=== PATIENT | female | born 1995 | race Caucasian/White ===

== ENCOUNTER 2017-04-01 20:49 | Observation (INO) ==
--- NOTE | 2017-04-01 21:16 | Emergency Department Note ---
Disposition Clinical Impression: Appendicitis Qualifiers: Appendicitis type: acute appendicitis Acute appendicitis type: unspecified acute appendicitis type Qualified Code(s): K35.80 - Unspecified acute appendicitis Disposition: Admitted As Inpatient Condition: Fair Time of Disposition: 21:18 Abdominal Pain HPI - General Chief Complaint: ED Abdominal Pain Stated Complaint: abdominal pain Time Seen by Provider: 04/01/17 21:08 Source: patient, family Mode of arrival: ambulatory Limitations: no limitations Nursing Notes Reviewed: Yes Vital Signs Reviewed: Yes - History of Present Illness HPI Narrative: Patient had outpatient test today including a CT scan of her abdomen and pelvis as well as labs and urinalysis. CT was positive for appendicitis. Patient referred to the emergency department Pt Subjective Complaint: abdominal pain Onset (ago): hour(s) Consistency: constant Location: RLQ Pain Severity: moderate Pain Scale: 4 Quality: aching Radiation: none Migration to: no migration Improves with: other (Position) Worsens with: movement Associated symptoms: Reports: denies other symptoms Treatments prior to arrival: none - Related Data Allergies Allergy/AdvReac Type Severity Reaction Status Date / Time No Known Allergies Allergy Verified 04/01/17 20:59 All systems ED: reviewed and negative except as stated. Constitutional: Reports: as per HPI Eyes: Reports: as per HPI ENT ED: Reports: as per HPI Cardiovascular: Reports: as per HPI Respiratory: Reports: as per HPI Gastrointestinal: Reports: abdominal pain Genitourinary: Reports: as per HPI Musculoskeletal: Reports: as per HPI Integumentary: Reports: as per HPI Neurological: Reports: as per HPI Psychiatric: Reports: as per HPI Endocrine: Reports: as per HPI Hematological/Lymphatic: Reports: as per HPI Allergic/Immunologic: Reports: as per HPI Abdominal Pain PMH - Past Medical History Medical history: Reports: no medical history Female Surgical History: Reports: breast surgery Psychiatric history: Reports: no psych history - Social History Smoking status: Never smoker Alcohol use: Reports: rarely Drug use: Reports: none Physical Exam - General Limitations: no limitations General appearance: alert, in no apparent distress - Head Head exam: atraumatic - Eye Eye exam: Present: normal appearance - ENT ENT exam: normal exam - Neck Neck exam: Present: normal inspection, full ROM - Chest Chest inspection: Present: normal inspection, symmetric chest wall rise - Respiratory Respiratory exam: Present: normal lung sounds bilaterally - Cardiovascular Cardiovascular exam: Present: regular rate, normal rhythm, normal heart sounds - Abdominal Exam Abdominal exam: Present: soft, tenderness (RLQ tenderness), normal bowel sounds - Rectal Exam Rectal exam: Present: deferred - Extremities Exam Extremities exam: Present: normal inspection - Neurological Exam Neurological exam: Present: alert, oriented X3, CN II-XII intact - Psychiatric Psychiatric exam: Present: normal affect, normal mood - Skin Skin exam: Present: warm, dry, intact Course Course Narrative: Patient presents with right lower quadrant abdominal pain. I did review the transcribed report of her CT abdomen and pelvis dated earlier today. I also reviewed her labs including CBC, chemistry profile, urinalysis, test. I spoke with Dr. Reza at 21:15 who recommends admission to his service and 2 g of IV cefoxitin. Vital Signs Temperature 98.5 F 04/01/17 20:59 Pulse Rate 66 04/01/17 20:59 Respiratory Rate 20 04/01/17 20:59 Blood Pressure 145/83 04/01/17 20:59 O2 Sat by Pulse Oximetry 97 04/01/17 20:59 Temperature 98.5 F 04/01/17 20:59 Pulse Rate 66 04/01/17 20:59 Respiratory Rate 20 04/01/17 20:59 Blood Pressure 145/83 04/01/17 20:59 O2 Sat by Pulse Oximetry 97 04/01/17 20:59 Oxygen Delivery Oxygen Delivery Room Air Abdominal Pain - Medical Records Medical records reviewed: Yes I reviewed the patient's medical records.
[2017-04-01] MEDS ORDERED: cefOXitin 2,000 MG in D5% in Water (Mini-Bag+) 100 ML IVPB ONE (21:18)
[2017-04-01] MEDS ORDERED: cefOXitin 2,000 MG in Water for inj. (sterile) 20 ML IVP ONE (21:36)
--- NOTE | 2017-04-01 22:25 | General Surg History&Physical ---
Date of Encounter: 04/01/17 Time of Encounter: 22:23 Assessment and Plan (1) Appendicitis Current Visit: Yes Status: Acute Plan for laparoscopic appendectomy. Risks, benefits, and expected outcomes explained the patient and she agrees to proceed. The assessment and plan as outlined above was discussed with the patient and/or family members who expressed understanding and agreement. All questions were answered. Qualifiers: Appendicitis type: acute appendicitis Acute appendicitis type: with localized peritonitis Qualified Code(s): K35.3 - Acute appendicitis with localized peritonitis History of Present Illness HPI: Ms. Longoria is a 21 year old female with 12 hours of abdominal pain. Patient woke up with it this morning. She denies any emesis however she does admit to nausea. She currently denies any appetite. She states she has never had anything like this in the past. Past Med Surg Social Fam HX - Past Medical History Medical history: no medical history Psychiatric history: no psych history - Past Surgical History Surgical History: other (Breast augmentation) - Social History Smoking Status: Never smoker Alcohol use: rarely Drug use: none Medications and Allergies Naproxen [Naprosyn] 500 mg PO BID 04/01/17 [History] Norgestimate-Ethinyl Estradiol [Sprintec 28 Day Tablet] 1 tab PO DAILY 04/01/17 [History] 3 Allergy/AdvReac Type Severity Reaction Status Date / Time No Known Allergies Allergy Verified 04/01/17 22:06 Review of Systems All systems PM: reviewed and no additional remarkable complaints except as stated All systems PM: A 10-system review of systems was performed and is negative for pertinent findings except as documented above in the HPI. General Surgery Exam Initial Vital Signs Temp Pulse Resp BP Pulse Ox 98.5 F 66 20 145/83 97 04/01/17 20:59 04/01/17 20:59 04/01/17 20:59 04/01/17 20:59 04/01/17 20:59 - General physical appearance well nourished, no distress - Eyes PERRL, normal ocular movement - ENT normal nares, normal mucosa - Respiratory normal respiratory effort, clear to percussion - Cardiovascular Cardiovascular exam: Present: RRR - Abdomen Abdomen general surgery: Present: soft, tender Abdominal Tenderness: Present: RLQ - Integumentary Integumentary general surgery: Present: warm and dry, no abnormal pigmentation - Neurologic Present: normal coordination, normal sensation - Musculoskeletal Present: normal gait, normal posture - Psychiatric Psychiatric general surgery: Present: A&Ox3, speech is normal Results - Labs All other labs normal. - Imaging CT scan - abdomen: image reviewed CT scan - pelvis: image reviewed
--- NOTE | 2017-04-01 22:48 | Anesthesia Evaluation PreOp ---
Date of Encounter: 04/01/17 Time of Encounter: 22:43 - Past History Planned Operation: Lap. Appy Cardiac History: Denies any Significant Hx Pulmonary History: Denies Any Significant HX [employer] MANAGER History: Denies Any Significant HX Other Medical History: Denies Any Significant HX Anesthesia History: Past Anesthesia (Breast Augmentation) : No Test: Negative (04/01/2017) Alcohol Use: rarely Drug use: none Medications and Allergies Naproxen [Naprosyn] 500 mg PO BID 04/01/17 [History] Norgestimate-Ethinyl Estradiol [Sprintec 28 Day Tablet] 1 tab PO DAILY 04/01/17 [History] 3 Allergy/AdvReac Type Severity Reaction Status Date / Time No Known Allergies Allergy Verified 04/01/17 22:06 - Meds/Allergy Pre-op Review Medications Reviewed: Yes Allergies Reviewed: Yes Beta Blockers on Current Med List: No Anesthesia Results - Labs Laboratory Tests 04/01/17 04/01/17 04/01/17 18:06 18:06 18:06 WBC Hgb Hct INR 1.0 BUN 11 Creatinine 0.77 Urine Test Negative 04/01/17 18:06 WBC 10.7 Hgb 12.7 Hct 38.9 INR BUN Creatinine Urine Test Anesthesia Exam O2 Sat Height 1.6 m Weight 72.575 kg O2 Sat by Pulse Oximetry 97 O2 Sat by Pulse Oximetry 97 Vital Signs Temp Pulse Resp BP Pulse Ox 98.5 F 66 20 145/83 97 04/01/17 20:59 04/01/17 20:59 04/01/17 20:59 04/01/17 20:59 04/01/17 20:59 Height: 5'3'' Weight: 160# NPO (# of Hours): > 8 hrs Pain Scale: 0 Pain Scale Used: Numeric (1 - 10) - HEENT Pupil (Motor): Pupils equal, EOMI Mallampati: I Teeth: Normal Oral Opening: Greater than 3 - CON[employer] MANAGER LOC: Oriented [employer] MA[employer]GER Motor: Normal RUE, Normal LUE, Normal RLE, Normal LLE, Normal Face [employer]GER Sensory: Normal: RUE, LUE, RLE, LLE, Face - Cardiac Rhythm: Regular Murmur: None JVD: No Carotid Bruit: No - Pulmonary Breath Sounds: bilateral Clear Respiratory Effort: Symmetrical Anesthesia Assess/Plan ASA Score: 1 Modified [place] Scale for Level of Consciousness: Cooperative, oriented, and tranquil Anesthetic Plan: General Autologous Blood: Yes Monitoring Plan: Standard Monitors Recovery Plan: PACU
[2017-04-01] MEDS ORDERED: *HR* HYDROmorphone (PF) 1 MG/ML SYRINGE IVP PRN (22:49)
[2017-04-01] MEDS ORDERED: *HR* Promethazine 25 MG/ML VIAL IVP PRN (22:50)
[2017-04-01] MEDS ORDERED: Albuterol 2.5 MG/3 ML NEBULIZER IH ONE (22:50)
[2017-04-01] MEDS ORDERED: Ondansetron 4 MG/2 ML VIAL IVP ONE (22:50)
[2017-04-01] MEDS ORDERED: *HR* Labetalol 20 MG/4 ML SYRINGE IVP PRN (22:50)
[2017-04-01] MEDS ORDERED: *HR* Midazolam HCl 2 MG/2 ML VIAL ONE (22:56)
[2017-04-01] MEDS ORDERED: *HR* FentaNYL (PF) 100 MCG/2 ML VIAL ONE ×2 (22:56→23:19)
[2017-04-01] MEDS ORDERED: *HR* Propofol 200 MG/20 ML VIAL IVP ONE (22:56)
[2017-04-01] MEDS ORDERED: *HR* Rocuronium Bromide 50 MG/5 ML VIAL ONE (22:58)
[2017-04-01] MEDS ORDERED: Lidocaine -MPF 2% 2 ML VIAL ONE (22:58)
[2017-04-01] MEDS ORDERED: *HR* Succinylcholine 200 MG/10 ML VIAL IVP ONE (22:58)
[2017-04-01] MEDS ORDERED: Dexamethasone 4 MG/ML VIAL ONE (22:58)
[2017-04-01] MEDS ORDERED: Neostigmine Methylsulfate 3 MG/3 ML SYRINGE ONE ×2 (23:30→23:45)
--- NOTE | 2017-04-02 00:25 | Anesthesia Evaluation Post Op ---
Date of Encounter: 04/02/17 Time of Encounter: 00:24 - Vital Signs Vital Signs: Vital Signs/O2 Sat, Most Current Temp Pulse Resp BP Pulse Ox 97.1 F L 50 12 116/55 95 04/02/17 00:17 04/02/17 00:17 04/02/17 00:17 04/02/17 00:17 04/02/17 00:17 - Lungs Lungs: Clear Ascult./Percussion - Airway Airway: Non-obstructed - Cardiovascular Regular Rate - Mental Status Mental Status: Alert & Oriented, Answers Appropriately - Pain Pain Scale: 2 Pain Scale used: Numeric (1 - 10) - Nausea Vomiting Nausea Vomiting: Not Present - Hydration Hydration: NPO, Has not voided - Discharge PostOp Status: Transfer Patient to floor
[2017-04-02] MEDS ORDERED: Ondansetron 4 MG/2 ML VIAL IVP PRN (00:29)
[2017-04-02] MEDS ORDERED: 0.9 % Sodium Chloride 1,000 ML IVC SCH (00:29)
[2017-04-02] MEDS: *HR* Morphine 2 MG/ML SYRINGE IVP PRN ×2 (00:53→07:49)
[2017-04-02 10:46] VITALS: BP 113/61
--- NOTE | 2017-04-02 10:56 | Discharge Summary ---
Date of Encounter: 04/02/17 Time of Encounter: 10:52 - Discharge Diagnosis (1) Appendicitis Priority: Primary Status: Resolved Qualifiers: Appendicitis type: acute appendicitis Acute appendicitis type: with localized peritonitis Qualified Code(s): K35.3 - Acute appendicitis with localized peritonitis - Discharge Medications Prescriptions: Ondansetron ODT [Zofran ODT] 4 mg SL Q4HR #15 tab.rapdis OxyCODONE/APAP 5/325 [Percocet 5/325 MG] 1 each PO Q6HR PRN #28 tablet PRN Reason: Pain Docusate [Colace] 100 mg PO BID #30 capsule Ibuprofen 800 mg PO Q8H #60 tablet Home Medications: Naproxen [Naprosyn] 500 mg PO BID 04/01/17 [History] Norgestimate-Ethinyl Estradiol [Sprintec 28 Day Tablet] 1 tab PO DAILY 04/01/17 [History] Docusate [Colace] 100 mg PO BID #30 capsule 04/02/17 [Rx] Ibuprofen 800 mg PO Q8H #60 tablet 04/02/17 [Rx] Ondansetron ODT [Zofran ODT] 4 mg SL Q4HR #15 tab.rapdis 04/02/17 [Rx] OxyCODONE/APAP 5/325 [Percocet 5/325 MG] 1 each PO Q6HR PRN #28 tablet 04/02/17 [Rx] Allergies/Adverse Reactions: 3 Allergy/AdvReac Type Severity Reaction Status Date / Time No Known Allergies Allergy Verified 04/01/17 22:06 General Surgery Exam Initial Vital Signs Temp Pulse Resp BP Pulse Ox 98.5 F 66 20 145/83 97 04/01/17 20:59 04/01/17 20:59 04/01/17 20:59 04/01/17 20:59 04/01/17 20:59 - General physical appearance well developed, well nourished, no distress - ENT normal mucosa - Neck no masses, no bruits, trachea midline, no lymphadectomy, no venous distension - Respiratory normal expansion, normal respiratory effort, clear to percussion, clear to auscultation - Cardiovascular Cardiovascular exam: Present: RRR, 15, 16 - Abdomen Abdomen general surgery: Present: bowel sounds present, soft, tender (Expected postoperative) - Incision Incision: Present: clean and dry, intact - Integumentary Integumentary general surgery: Present: warm and dry, no abnormal pigmentation - Neurologic Present: CN 2-12 grossly intact, normal coordination, normal sensation - Musculoskeletal Present: normal gait, normal posture - Psychiatric Psychiatric general surgery: Present: A&Ox3, appropriate, oriented to person, oriented to place, oriented to time, speech is normal, memory intact Date of admission: 04/01/17 21:32 Primary care physician: Mahesh Lomeli MD Discharging clinician: Trace Simms) Anticipated date of discharge: 04/02/17 - Patient Status Disposition: Home, Self-Care Condition: Fair Functional capacity at discharge: independent ambulation Overall status at discharge: patient is back to baseline - Discharge Instructions Instructions: Laparoscopic Appendectomy (DC) Follow Up With: Mahesh Lomeli MD [Primary Care Provider] - Courtney Simms CNP [Advanced Practice Nurse] - 04/17/17 9:20 am Forms: Inpatient Work/School Release Additional Instructions: General Surgical Discharge Instructions 1. No pushing, pulling, or lifting greater than 15 lbs for two weeks. 2. You may shower beginning today, but no tub baths, soaking, or swimming for 2 weeks. 3. You may resume driving when you are off narcotics and are safe to react in a car. 4. Take narcotics as directed. Do not take more narcotics then directed and do not share your narcotics with any other person. Do not drink alcohol while on narcotics. 5. Take stool softeners (Colace) or a water based laxative (Miralax) while taking narcotics. You may hold for loose stools. 6. Report any fevers greater than 100.5F, increase abdominal discomfort, drainage that looks like pus, increased redness or pain at the surgical site, or any vomiting. 7. Report any pain in the calves, shortness of breath, or rapid heartbeat. 8. Follow-up in the office as directed. 9. If you were prescribed antibiotics, do not stop them without talking to your provider. - Diet and Activity Activity: increase activity as tolerated Diet: advance to your usual diet - Hospital Course Hospital course: Ms. Longoria is a 21 year old female who presented on 04/01/2017 for a 12 hour history of abdominal discomfort. Her exam and hospital course including a CT were consistent with acute appendicitis. She was taken to the operating room where she underwent an uncomplicated laparoscopic appendectomy by Dr. Reza on 04/01/2017. The remainder however hospital course has been uncomplicated. She is ambulating and voiding without difficulty. She is afebrile and her vital signs are stable. She is tolerating liquids without nausea or vomiting. We will begin discharge planning to home with a follow-up in the office in 2 weeks. - Time Spent with Patient Total time spent providing and/or coordinating discharge services:
[2017-04-02] MEDS ORDERED: *HR* OxyCODONE/APAP 5/325 TABLET PO ONE (11:00)
[2017-04-02] MEDS ORDERED: Ondansetron 4 MG/2 ML VIAL IVP ONE (11:00)
--- NOTE | 2017-04-02 12:05 | Operative Note ---
Date of procedure: 04/01/17 Pre-op diagnosis: Appendicitis Post-op diagnosis: same Procedure: Laparoscopic appendectomy Anesthesia: JADE Surgeon: Trace Reza Estimated blood loss (cc): 5 Specimen: Appendix Condition: stable Disposition: same day Procedure in Detail: After informed consent, patient was taken to the operating room placed in supine position. After adequate sedation anesthesia the abdomen was prepped and draped. A 12 mm cannula was placed in the umbilicus. A 5 mm cannulas placed in suprapubic region and the left lower quadrant. Camera was inserted and the abdomen after a pneumoperitoneum. 2 Alejandro graspers were used to identify the base of the appendix. A appendiceal window was created. A LINDA endoscopic stapler was placed across the base. A vascular load was placed across the mesoappendix. Once the appendix was was placed in an Endobag and removed through the umbilicus. The right lower quadrant was suctioned dry no bleeding was identified. Remainder the pneumoperitoneum was evacuated. The umbilicus was closed with an 0 Vicryl suture in [id number] fashion. Skin was closed with 4-0 Vicryl suture and Dermabond.
== END 2017-04-02 12:00 | disposition home or self-care (01) ==
LOC: EMEROO 20:49 → 3ANU 20:49
PROVIDERS: ADMIT Surgery; ATTEND Surgery